=== PATIENT | female | born 1945 | race Caucasian/White ===

== ENCOUNTER → 2021-12-24 11:31 | Outpatient (CLI) | payer MEDICARE, SELFPAY | PROVIDERS: PCP Family Medicine | DX: R35.0 Frequency of micturition (principal) | CPT/HCPCS: 87086 ==

== ENCOUNTER → 2022-02-27 13:10 | Outpatient (CLI) | payer MEDICARE, SELFPAY | PROVIDERS: PCP Family Medicine; Referring Provider Dermatology; Visit Provider Family Medicine | DX: S21.002A Unspecified open wound of left breast, initial encounter (principal); S31.502A Unspecified open wound of unspecified external genital organs, female, initial encounter; L30.4 Erythema intertrigo; L08.9 Local infection of the skin and subcutaneous tissue, unspecified; M06.9 Rheumatoid arthritis, unspecified | CPT/HCPCS: 11042; 87070; 87075; 87077; 87147; 87186; 87205; 99204; 99213 ==

== ENCOUNTER → 2022-03-13 13:15 | Outpatient (CLI) | payer MEDICARE, SELFPAY | PROVIDERS: PCP Family Medicine; Referring Provider Dermatology; Visit Provider Family Medicine | DX: S21.002A Unspecified open wound of left breast, initial encounter (principal); S31.502A Unspecified open wound of unspecified external genital organs, female, initial encounter; L30.4 Erythema intertrigo; L08.1 Erythrasma; B95.7 Other staphylococcus as the cause of diseases classified elsewhere; M06.9 Rheumatoid arthritis, unspecified | CPT/HCPCS: 99214 ==

== ENCOUNTER → 2022-04-02 13:23 | Outpatient (CLI) | payer MEDICARE, SELFPAY | PROVIDERS: PCP Family Medicine; Referring Provider Family Medicine; Visit Provider Family Medicine | DX: S21.002A Unspecified open wound of left breast, initial encounter (principal); S31.502A Unspecified open wound of unspecified external genital organs, female, initial encounter; L30.4 Erythema intertrigo; L08.1 Erythrasma | CPT/HCPCS: 99212; 99213 ==

== ENCOUNTER → 2022-04-09 10:30 | Outpatient (CLI) | payer MEDICARE, SELFPAY ==
[2022-04-09 20:56] LABS: Appearance Urine UA CLEAR; Bilirubin Urine UA NEGATIVE (NEGATIVE); Color Urine UA YELLOW; Glucose Urine UA NEGATIVE (Negative); Ketones Urine UA TRACE (NEGATIVE); Leukocyte Esterase Urine UA 2+ (NEGATIVE); Nitrite Urine UA NEGATIVE (Negative); Occult Blood Urine UA NEGATIVE (Negative); Protein Urine UA TRACE (Negative); Specific Gravity Urine UA 1.015 (1.000-1.035); Urobilinogen Urine UA 0.2 E.U./dL (0.2)
[2022-04-09 21:11] LABS: Bacteria Urine Few (2-10); Culture Indicated Urine Specimen Cultured; RBC Urine 0-1/HPF (0-5/HPF); WBC Urine 10-30/HPF (0-5/HPF)
== END ==
PROVIDERS: PCP Family Medicine; Visit Provider Family Medicine
DX: R30.0 Dysuria (principal)
CPT/HCPCS: 81001; 87086

== ENCOUNTER → 2022-05-02 12:24 | Outpatient (CLI) | payer MEDICARE, SELFPAY ==
[2022-05-02 21:00] LABS: Bacteria Urine None Seen; Culture Indicated Urine Specimen Cultured; RBC Urine None Seen (0-5/HPF); Squamous Epithelial Cell Urine 1-5 /HPF (0-5/HPF); WBC Urine 5-10/HPF (0-5/HPF)
[2022-05-02 21:16] LABS: Appearance Urine UA SL CLOUDY; Bilirubin Urine UA NEGATIVE (NEGATIVE); Color Urine UA YELLOW; Glucose Urine UA NEGATIVE (Negative); Ketones Urine UA TRACE (NEGATIVE); Leukocyte Esterase Urine UA 1+ (NEGATIVE); Nitrite Urine UA NEGATIVE (Negative); Occult Blood Urine UA NEGATIVE (Negative); Protein Urine UA TRACE (Negative); Urobilinogen Urine UA 0.2 E.U./dL (0.2)
== END ==
PROVIDERS: PCP Family Medicine; Visit Provider Family Medicine
DX: R30.0 Dysuria (principal)
CPT/HCPCS: 81001; 87086

== ENCOUNTER → 2023-03-26 10:47 | Outpatient (CLI) | payer MEDICARE, SELFPAY ==
--- NOTE | 2023-03-26 | DI.RAD.S_ITS ---
Bone Density Report Name: RUBA BURNETTE Age: 77 Sex: Female Ethnicity: White Date of : 1945 Indication: postmenopausal; screening for osteoporosis; Referring Provider: TY REDDY Study: Bone densitometry was performed. Exam Date: March 26, 2023 Accession number: [id number] Bone Density: Region BMD T-score Z-score Classification AP Spine(L2, L3, L4) 0.921 -1.4 1.3 Osteopenia Femoral Neck (Left) 0.506 -3.1 -0.8 Osteoporosis Total Hip (Left) 0.774 -1.4 0.7 Osteopenia Femoral Neck (Right) 0.636 -1.9 0.4 Osteopenia Total Hip (Right) 0.787 -1.3 0.8 Osteopenia Total Hip Mean 0.781 -1.4 0.8 Osteopenia World Health Organization criteria for BMD impression classify patients as: Normal (T-score at or above -1.0), Osteopenia (T-score between -1.0 and -2.5), or Osteoporosis (T-score at or below -2.5). 10-year Fracture Risk: FRAX not reported because: Some T-score for Spine Total or Hip Total or Femoral Neck at or below -2.5 Impression: The patient has osteoporosis, based on the Left Femoral Neck T-score. Discussion: INCREASED RISK OF FRACTURE. BONE DENSITY IS UNDESIRABLY LOW AT ONE OR MORE SKELETAL SITES, CONSISTENT WITH POSTMENOPAUSAL OSTEOPOROSIS. This patient's lowest T-score meets the World Health Organization's (WHO) criteria for osteoporosis at one or more sites (T-score -2.5 or below). In untreated patients, the risk of osteoporotic fracture increases approximately two-fold for each 1.0 SD decrease in T-score. Low bone density is not the only risk factor for fracture; also consider factors such as patient's age, frailty or poor health, risk of falling, risk of injury, previous osteoporotic fracture, family history of osteoporosis, cigarette smoking, low body weight, etc. Not everyone with low bone mineral density has osteoporosis; osteomalacia and other metabolic bone disorders should also be considered. Patients who have osteoporosis should be evaluated for specific diseases and conditions (secondary causes) that may cause or contribute to bone loss. The [place] [employer]ocrinologists (AACE) and National Osteoporosis Foundation (NOF) recommend pharmacologic intervention for all postmenopausal women whose T-score is in this range. The patient should follow a healthful lifestyle (good nutrition with adequate calcium and vitamin D, and appropriate weight-bearing exercise). Follow-Up: Consider a repeat BMD and Vertebral Fracture Assessment (VFA) exam in 2 years or sooner if medically necessary, to reassess this patient's status. Reported by: KIARA MOTT MD on 03/26/2023 12:20:00 PM.
== END ==
PROVIDERS: PCP Family Medicine; Referring Provider Family Medicine; Visit Provider Family Medicine
DX: M81.0 Age-related osteoporosis without current pathological fracture (principal); Z87.39 Personal history of other diseases of the musculoskeletal system and connective tissue; Z13.820 Encounter for screening for osteoporosis; Z78.0 Asymptomatic menopausal state; M06.9 Rheumatoid arthritis, unspecified; Z90.710 Acquired absence of both cervix and uterus
CPT/HCPCS: 77080

== ENCOUNTER → 2024-05-06 09:40 | Outpatient (CLI) | payer MEDICARE, SELFPAY ==
--- NOTE | 2024-05-06 09:41 | DI.RAD.S_ITS ---
PROCEDURE: XR DEXA AXIAL SKELETON INDICATIONS: Localized osteoporosis [[place]] COMPARISON: [facility], , XR DEXA AXIAL SKELETON, 03/26/2023, 12:04. FINDINGS: Lumbar Spine: Bone mineral density 0.874 g/cm2, T score -1.8, no statistically significant change compared to prior. Left Hip: Bone mineral density 0.779 g/cm2, T score -1.3, no statistically significant change compared to prior. Left Femoral Neck: Bone mineral density 0.573 g/cm2, T score -2.5. Right Hip: Bone mineral density 0.801 g/cm2, T score -1.2, no statistically significant change compared to prior. Right Femoral Neck: Bone mineral density 0.589 g/cm2, T score -2.3. Fracture Risk Calculation (when applicable): 10-year fracture risk of a major osteoporotic fracture 19 percent and of a hip fracture 6.4 percent. (T score greater or equal to -1.0 to: NORMAL) (T score from -1.1 to -2.4: OSTEOPENIA) (T score less than or equal to -2.5: OSTEOPOROSIS) IMPRESSION: Osteoporosis by WHO classification. Follow-up guidelines as follows: Osteoporosis: Consider a repeat DEXA and Vertebral Fracture Assessment (VFA) exam in 2 years or sooner if medically necessary, to reassess this patient's status. Osteopenia: Consider a repeat DEXA in 2-3 years to reassess this patient's status, or if there is a new clinical indication. Normal: Consider a repeat DEXA in 5 years or sooner, or if there is a new clinical indication. All treatment decisions require clinical judgment and consideration of individual patient factors, including patient preferences, comorbidities, previous drug use, risk factors not captured in the FRAX model (e.g., frailty, falls, vitamin D deficiency, increased bone turnover, interval significant decline in bone density ) and possible under- or over-estimation of fracture risk by FRAX. In addition, the NOF Guide recommends that FDA-approved medical therapies be considered in postmenopausal women and men age >= 50 years with a: * Hip or vertebral (clinical or morphometric) fracture * T-score of <=-2.5 at the spine or hip * Ten-year fracture probability by FRAX of >= 3% for hip fracture or >=20% for major osteoporotic fracture. People with diagnosed cases of osteoporosis or at high risk for fracture should have regular bone mineral density tests. For patients eligible for Medicare, routine testing is allowed once every 2 years. The testing frequency can be increased to one year for patients who have rapidly progressing disease, those who are receiving or discontinuing medical therapy to restore bone mass, or have additional risk factors. Dictated by: Luis Ryan M.D. on 05/06/2024 at 17:58 Approved by: Luis Ryan M.D. on 05/06/2024 at 17:59
== END ==
PROVIDERS: PCP Family Medicine; Referring Provider Family Medicine; Visit Provider Family Medicine
DX: M81.0 Age-related osteoporosis without current pathological fracture (principal)
CPT/HCPCS: 77080

== ENCOUNTER → 2025-04-05 16:01 | Outpatient (CLI) | payer MEDICARE, SELFPAY ==
--- NOTE | 2025-04-05 16:02 | DI.ECHO.S_ITS ---
[facility] : : [id number] : : [place] : : [id number] : : Phone: [phone] Echocardiogram Report + + :Name: RUBA BURNETTE Study Date: 04/05/2025 Height: 66 in : :[facility] ReadingLocation: Weight: 168 lb : : Gender: Female BSA: 1.9 m2 : :: 1945 Age: 79 yrs BP: 110/62 mmHg: :Reason For Study: CARDIOMYOPATHY : :Ordering Physician: KEVIN, : :LIDA Performed By: Solo Radford : :Referring: UNSPECIFIED : + + Interpretation Summary Technically difficult study secondary to poor acoustic windows. Patient declined use of intracardiac echo contrast. - The left ventricular contractility appears to be grossly normal. Estimated ejection fraction is greater than 65% with no segmental wall motion abnormalities. Mild concentric LVH. Grade 1 diastolic dysfunction. - The right ventricle was not well-visualized. In 2 views, the right ventricular contractility appears to be preserved. - There is mild left atrial enlargement. All other cardiac chambers appears to be grossly normal in size. - Moderate to severe mitral annular calcifications noted. Moderate mitral valve leaflet calcifications present with mild mitral stenosis per Doppler interrogation. Mean mitral valve gradient is 3.3 mmHg. - Mild aortic valvular stenosis per Doppler interrogation. Peak velocity is 2.8 m/s with calculated mean gradient of 15.8 mmHg. - No obvious intracardiac shunts. - No obvious intracardiac masses nor thrombi. - No hemodynamically significant pericardial effusion. - Low right-sided filling pressures. Conclusion: Normal biventricular systolic function with mild mitral and aortic valvular stenoses Procedure: A two-dimensional transthoracic echocardiogram with color flow and Doppler was performed. The study quality was technically difficult. There is no prior echocardiogram noted for this patient. The patient was in normal sinus rhythm during the exam. Left Ventricle: The left ventricle is normal in size. Left ventricular wall thickness is mildly increased. There is no ventricular septal defect visualized. The ejection fraction is estimated to be 65-70%. Right Ventricle: The right ventricle is not well visualized. Atria: The left atrium is mildly dilated. Right atrial size is normal. The interatrial septum is not well visualized. Mitral Valve: There is moderate to severe mitral annular calcification. The mitral valve leaflets appear moderately thickened. The mitral valve leaflets are moderately calcified. There is mild mitral stenosis. The mitral valve mean gradient is 3.3 mmHg. There is mild mitral regurgitation. Aortic Valve: The aortic valve is not well visualized. There is mild aortic stenosis. The peak aortic velocity is 2.8 m/sec. No aortic regurgitation is present. Tricuspid Valve: The tricuspid valve is not well visualized. No tricuspid regurgitation. Pulmonic Valve: The pulmonic valve is not well visualized. There is no pulmonic valvular regurgitation. Great Vessels: The aortic root is normal size. The dimensions of the ascending aorta are normal. The pulmonary is not well visualized. The IVC is of normal diameter and collapses greater than 50% with a sniff. This suggests a low right atrial pressure of 3 mm Hg. Pericardium/ Pleura There is no pericardial effusion. There is no pleural effusion. MMode/2D Measurements & Calculations LVIDd: 4.7 cm LVOT diam: 1.7 cm LVIDs: 2.4 cm Ao root diam: 3.1 cm FS: 48.3 % asc Aorta Diam: 3.3 cm IVSd: 1.2 cm LVPWd: 1.1 cm LV slater. diameter/BSA (cm/m^2): 2.5 LV sys. diameter/BSA (cm/m^2): 1.3 LA A2 area: 21.9 cm2 RA long axis: 3.5 cm LA A4 area: 19.0 cm2 RA area: 7.2 cm2 LA length (vol): 5.1 cm RA vol: 12.7 ml LA vol: 69.0 ml RA : 6.8 ml/m2 LA vol index: 37.1 ml/m2 IVC diam: 1.4 cm Doppler Measurements & Calculations Ao V2 max: 279.6 cm/sec MV E max sj: 93.9 cm/sec Ao V2 mean: 185.3 cm/sec MV A max sj: 149.3 cm/sec Ao max P.3 mmHg MV E/A: 0.63 Ao mean P.8 mmHg Med Peak E' Sj: 3.2 cm/sec Ao V2 VTI: 57.8 cm E/E' med: 29.7 Lat Peak E' Sj: 3.3 cm/sec E/E' lat: 28.3 E/e' average: 29.0 MV dec time: 0.34 sec PA V2 max: 93.0 cm/sec MV V2 mean: 81.3 cm/sec PA V2 mean: 65.8 cm/sec MV mean P.3 mmHg PA mean P.9 mmHg MV V2 VTI: 43.3 cm PA pr(Accel): 39.6 mmHg Reading Physician:ANATOLIY
== END ==
PROVIDERS: PCP Family Medicine; Referring Provider Internal Medicine Cardiovascular Disease; Visit Provider Internal Medicine Cardiovascular Disease
DX: I08.0 Rheumatic disorders of both mitral and aortic valves (principal); I42.2 Other hypertrophic cardiomyopathy
CPT/HCPCS: 93306